=== PATIENT | female | born 1965 | race American Indian/Alaskan Native ===

== ENCOUNTER 2021-08-11 19:04 | Emergency (ER) | payer SELFPAY | END 2021-08-11 21:00 | disposition left against medical advice (07) | LOC: ED 19:04 | DX: R11.10 Vomiting, unspecified (principal); Z53.21 Procedure and treatment not carried out due to patient leaving prior to being seen by health care provider ==

== ENCOUNTER 2021-08-13 15:55 | Emergency (ER) | payer MEDICARE ==
[2021-08-13] MEDS ORDERED: FAMOTIDINE 20 MG/2 ML INJ IV ONE (21:03)
[2021-08-13] MEDS ORDERED: ONDANSETRON 4 MG/2 ML INJ IV ONE (21:03)
[2021-08-13] MEDS ORDERED: SODIUM CHLORIDE 0.9% 1000 ML 1,000 ML IV ONE ×2 (21:03→22:45)
[2021-08-13] MEDS ORDERED: MORPHINE 4 MG/1 ML INJ IV ONE (21:03)
[2021-08-13 21:39] LABS: Basophils # (Auto) 0.1 K/mm3 (0.0-0.1); Basophils % (Auto) 0.8 % (0.0-1.8); Hematocrit 42.7 % (30.3-42.9); Hemoglobin 14.3 gm/dl (10.1-14.3); Lymphocytes # (Auto) 1.8 K/mm3 (1.2-5.4); Lymphocytes % (Auto) 15.7 % (13.4-35.0); Mean Corpuscular HGB Conc 34 % (30-34); Mean Corpuscular Volume 88 fl (79-97); Monocytes # (Auto) 0.6 K/mm3 (0.0-0.8); Monocytes % (Auto) 4.8 % (0.0-7.3); Platelet Count 265 K/mm3 (140-440); Red Blood Count 4.84 M/mm3 (3.65-5.03); Red Cell Distribution Width 12.3 % (13.2-15.2)
[2021-08-13 21:59] LABS: Alanine Aminotransferase 8 units/L (7-56); Albumin 4.9 g/dL (3.9-5); Blood Urea Nitrogen 18 mg/dL (7-17); Calcium 10.5 mg/dL (8.4-10.2); Hemolysis Index 8
[2021-08-13 22:11] LABS: BUN/Creatinine Ratio 36
[2021-08-13 22:43] LABS: Bilirubin,Urine NEG (Negative); Blood,Urine NEG (Negative); Color,Urine Yellow (Yellow); Mucus,Urine 3+ /HPF; Protein,Urine >500 mg/dL (Negative); Urobilinogen,Urine < 2.0 mg/dL (<2.0)
--- NOTE | 2021-08-13 22:57 | Cat Scan Report ---
CT ABDOMEN AND PELVIS WITH CONTRAST INDICATION: Patient complains of abdominal pain with N/V CONTRAST: 100 cc Omnipaque 300 IV COMPARISON: None available. All CT scans at this location are performed using CT dose reduction for ALARA by means of automated e xposure control. FINDINGS: Lung bases are clear. No pneumoperitoneum is seen. Gallbladder and bile ducts appear within normal limits. No abdominal masses are seen. No lymphadenopathy. No inflammatory changes. No free fl uid. No significant abdominal wall herniation. No urinary or bowel obstructive changes. Appendix appe ars within normal limits. Left hemicolectomy changes with anastomosis in the sigmoid area are noted.. No pelvic masses are seen. IMPRESSION: No acute abnormalities are seen Signer Name: Vicente Saldana MD Signed: 08/13/2021 10:52 PM Workstation Name: [id number]
--- NOTE | 2021-08-14 00:41 | Emergency Department Report ---
ED N/V/D HPI - General Chief complaint: Nausea/Vomiting/Diarrhea Stated complaint: DEHYDRATION/VOMITTING Source: patient Mode of arrival: Ambulatory Limitations: No Limitations - History of Present Illness Initial comments: Patient is a 56-year-old -[place] female with a history of pvl-[id number]-[id number] diabetes and hypertension who presents to the ED with complaint of acute onset persistent intractable nausea and vomiting and diffuse abdominal pain for the last 1 week. Patient states that the pain has been constant and persistent and that she has not been able to keep anything down especially in the last 3 days. Patient states that no one else at home is had similar symptoms. Patient denies chest pain, shortness of breath, dizziness, syncope, fever, chills, cough, sore throat, neck pain, change in vision, back pain, dysuria, urinary frequency and urgency or lightheadedness. MD complaint: nausea, vomiting, abdominal pain -: Sudden, week(s) (1) Description of Vomiting: food contents, watery, bilious Associated Abdominal Pain: Yes (Diffuse) Location: diffuse Radiation: none Severity: severe Pain Scale: 8 Quality: cramping, aching, sharp Consistency: intermittent Improves with: none Worsens with: eating, vomiting Context: possible food poisoning Associated Symptoms: denies other symptoms, loss of appetite, malaise, nausea/vomiting. denies: myalgias, chest pain, cough, headaches, rash, dysuria, shortness of breath, syncope, weakness - Related Data Previous Rx's Medication Instructions Recorded Last Taken Type Dicyclomine [Bentyl] 20 mg PO Q6H PRN #30 tablet 08/14/21 Unknown Rx Famotidine [Pepcid] 20 mg PO BID #40 tablet 08/14/21 Unknown Rx Ondansetron [Zofran Odt] 4 mg PO Q8HR PRN #20 tab.rapdis 08/14/21 Unknown Rx Allergies Allergy/AdvReac Type Severity Reaction Status Date / Time No Known Allergies Allergy Verified 08/13/21 18:57 ED Review of Systems ROS: Stated complaint: DEHYDRATION/VOMITTING Other details as noted in HPI Constitutional: denies: chills, fever Eyes: denies: eye pain, eye discharge, vision change ENT: denies: ear pain, throat pain Respiratory: denies: cough, shortness of breath, wheezing Cardiovascular: denies: chest pain, palpitations Endocrine: no symptoms reported Gastrointestinal: abdominal pain, nausea, vomiting. denies: diarrhea Genitourinary: denies: urgency, dysuria, discharge Musculoskeletal: denies: back pain, joint swelling, arthralgia Skin: denies: rash, lesions Neurological: denies: headache, weakness, paresthesias Psychiatric: denies: anxiety, depression Hematological/Lymphatic: denies: easy bleeding, easy bruising ED Past Medical Hx - Past Medical History Previous Medical History?: No Hx Hypertension: Yes Hx Diabetes: Yes - Surgical History Past Surgical History?: No - Medications Home Medications: Home Medications Medication Instructions Recorded Confirmed Last Taken Type Dicyclomine [Bentyl] 20 mg PO Q6H PRN #30 tablet 08/14/21 Unknown Rx Famotidine [Pepcid] 20 mg PO BID #40 tablet 08/14/21 Unknown Rx Ondansetron [Zofran Odt] 4 mg PO Q8HR PRN #20 tab.rapdis 08/14/21 Unknown Rx ED Physical Exam - General Limitations: No Limitations General appearance: alert, in no apparent distress - Head Head exam: Present: atraumatic, normocephalic, normal inspection - Eye Eye exam: Present: normal appearance, PERRL, EOMI Pupils: Present: normal accommodation - ENT ENT exam: Present: normal exam, normal orophraynx, mucous membranes moist, TM's normal bilaterally, normal external ear exam - Neck Neck exam: Present: normal inspection, full ROM - Respiratory Respiratory exam: Present: normal lung sounds bilaterally. Absent: respiratory distress, wheezes, rales, rhonchi, chest wall tenderness, accessory muscle use, decreased breath sounds, prolonged expiratory - Cardiovascular Cardiovascular Exam: Present: normal rhythm, tachycardia, normal heart sounds. Absent: systolic murmur, diastolic murmur, rubs, gallop - GI/Abdominal GI/Abdominal exam: Present: soft, tenderness (Palpable diffuse abdominal tenderness), normal bowel sounds. Absent: guarding, rebound, hyperactive bowel sounds, hypoactive bowel sounds - Extremities Exam Extremities exam: Present: normal inspection, full ROM, normal capillary refill - Back Exam Back exam: Present: normal inspection, full ROM. Absent: tenderness, CVA tenderness (R), CVA tenderness (L), muscle spasm, paraspinal tenderness, vertebral tenderness - Neurological Exam Neurological exam: Present: alert, oriented X3, CN II-XII intact, normal gait, reflexes normal - Psychiatric Psychiatric exam: Present: normal affect, normal mood - Skin Skin exam: Present: warm, dry, intact, normal color. Absent: rash ED Course Vital Signs 08/13/21 18:58 Temperature 98 F Pulse Rate 108 H Respiratory 16 Rate Blood Pressure 194/123 [Left] O2 Sat by Pulse 97 Oximetry ED Medical Decision Making - Lab Data Result diagrams: 08/13/21 21:15 08/13/21 21:15 - Radiology Data Radiology results: report reviewed, image reviewed [facility] [address] [place] [address] Cat Scan Report Signed Patient: RIVKA HO MR#: [id number] : 1965 Acct:[id number] Age/Sex: 56 / F ADM Date: 08/13/21 Loc: ED Attending Dr: Ordering Physician: AMISH JO Date of Service: 08/13/21 Procedure(s): CT abdomen pelvis w con Accession Number(s): [id number] cc: AMISH JO CT ABDOMEN AND PELVIS WITH CONTRAST INDICATION: Patient complains of abdominal pain with N/V CONTRAST: 100 cc Omnipaque 300 IV COMPARISON: None available. All CT scans at this location are performed using CT dose reduction for ALARA by means of automated exposure control. FINDINGS: Lung bases are clear. No pneumoperitoneum is seen. Gallbladder and bile ducts appear within normal limits. No abdominal masses are seen. No lymphadenopathy. No inflammatory changes. No free fluid. No significant abdominal wall herniation. No urinary or bowel obstructive changes. Appendix appears within normal limits. Left hemicolectomy changes with anastomosis in the sigmoid area are noted.. No pelvic masses are seen. IMPRESSION: No acute abnormalities are seen Signer Name: Vicente Saldana MD Signed: 08/13/2021 10:52 PM Workstation Name: [id number] Transcribed By: KENDAL Dictated By: Vicente Saldana MD Electronically Authenticated By: Vicente Saldana MD Signed Date/Time: 08/13/212251 DD/ 47 TD/TT: - Medical Decision Making This is a 56-year-old -[place] female with a history of eks-bwewrfe-liqsiehfq diabetes and hypertension who presents to the ED with complaint of acute onset persistent intractable nausea and vomiting and diffuse abdominal pain for the last 1 week. Patient states that the pain has been constant and persistent and that she has not been able to keep anything down especially in the last 3 days. Patient states that no one else at home is had similar symptoms. In the ED, patient is alert and oriented x3 and is not in any distress. Patient is however tachycardic and afebrile in triage. Lab test results were reviewed and showed BUN of 18 and hyperglycemia of 25 mg/dL. The rest of the lab test results are nonactionable. Patient was treated in the ED with antiemetics, also received 2 L of normal saline IV bolus, antacids and pain medications. Abdomen pelvis CT scan with IV contrast showed no acute abnormalities. On reevaluation, patient's pain is well controlled medication. Patient's nausea and vomiting also well controlled. Patient was able to keep oral fluids in the ED and passed oral fluid challenge. Patient was therefore discharged home on medications and advised to maintain a clear liquid diet for 12 to 24 hours, take medication as needed for nausea and vomiting and pain, and to follow-up with her primary care physician in 5 to 7 days for reevaluation or return to the ED immediately if symptoms get worse. - Differential Diagnosis Viral gastroenteritis; dehydration; UTI; GERD; gastritis; gallstones Critical care attestation.: If time is entered above; I have spent that time in minutes in the direct care of this critically ill patient, excluding procedure time. ED Disposition Clinical Impression: Abdominal pain in female patient, Nausea and vomiting in adult patient, Viral gastroenteritis Disposition: 01 HOME / SELF CARE / HOMELESS Is pt being admited?: No Does the pt Need Aspirin: No Condition: Stable Instructions: Viral Gastroenteritis, Adult, [id number], Abdominal Pain, Adult, Qzrz-[id number]-Gpqj, Nausea and Vomiting, Adult, Qfgw-[id number]-[id number] Additional Instructions: All lab test results were reviewed and are all nonactionable. Therefore maintain a clear liquid diet for 12 to 24 hours, plenty of fluids, take medication as needed for nausea and vomiting and follow-up with your primary care physician in 5 to 7 days for reevaluation. Return to the ED immediately if symptoms get worse for Prescriptions: Dicyclomine [Bentyl] 20 mg PO Q6H PRN #30 tablet PRN Reason: Pain , Severe (7-10) Famotidine [Pepcid] 20 mg PO BID #40 tablet Ondansetron [Zofran Odt] 4 mg PO Q8HR PRN #20 tab.rapdis PRN Reason: Nausea Referrals: [facility] [Provider Group] - 3-5 Days Time of Disposition: 00:43 Print Language: YI
[2021-08-14] MEDS ORDERED: KETOROLAC 30 MG/1 ML INJ IV ONE (00:47)
[2021-08-14] MEDS ORDERED: PROCHLORPERAZINE EDISYLATE 10 MG/2 ML VIAL IV ONE (00:47)
[2021-08-14 01:57] VITALS: BP 163/101
--- NOTE | 2021-08-17 09:15 | Electrocardiograph Report ---
[facility] Test Date: 2021-08-13 Test Time: 18:57:25 Pat Name: RIVKA HO Department: Room: Gender: F Senior Manager: RAMSES : 1965 Requested By: SANGEETHA LIVINGSTNO Order Number: [id number] Reading MD: Angelo Griggs Measurements Intervals [place] Rate: 116 P: 64 KS: 156 QRS: 78 QRSD: 88 T: 61 QT: 345 QTc: 480 Interpretive Statements Sinus tachycardia Probable left atrial enlargement NSST'S. PRWP No previous ECG available for comparison Electronically Signed On 08-17-2021 9:15:27 EDT by Angelo Griggs
== END 2021-08-14 03:19 | disposition home or self-care (01) ==
LOC: ED 15:55
DX: A08.4 Viral intestinal infection, unspecified (principal); R11.2 Nausea with vomiting, unspecified; R10.9 Unspecified abdominal pain; I10 Essential (primary) hypertension; E11.9 Type 2 diabetes mellitus without complications; Z79.899 Other long term (current) drug therapy
CPT/HCPCS: 36415; 74177; 80053; 81001; 83690; 85025; 93005; 96361; 96374; 96375; 99284; J0780; J1885; J2270; J2405; J3490; J7030; Q9967